=== PATIENT | female | born 1940 | race Two or more races ===

== ENCOUNTER 2022-08-04 16:45 | Inpatient (IN) | payer OTHER ==
[~2022-08-04] VITALS: Ht 165.1 cm; Wt 86.2 kg
--- NOTE | 2022-08-04 16:57 | NUR ---
BIB RA 89 FROM HOME,CAREGIVER CALLED BECAUSE SHE WAS NOTED TO BE CONFUSED AND FEBRILE TODAY,SAW HER THIS WEEKEND AND SHE WAS ACTING NORMAL. PLACED ON BED, AWAKE ALERT- CONFUSED UNABLE TO ANSWER QUESTION.
[2022-08-04] MEDS ORDERED: IV NS 0.9% 1,000 ML BAG IV ONE (17:00)
[2022-08-04] MEDS ORDERED: ACETAMINOPHEN ES 500 MG TABLET PO ONE (17:00)
[2022-08-04] MEDS ORDERED: ACETAMINOPHEN ES 500 MG TABLET ONE (17:02)
--- NOTE | 2022-08-04 17:10 | NUR ---
SHREDDER TENDER PEAT AT BEDSIDE
[2022-08-04 17:53] LABS: BASOPHILS % (AUTO) 0.2 % (0.0-2.0); EOSINOPHILS % (AUTO) 0.3 % (0.0-6.0); HEMATOCRIT 36 % (33-45); HEMOGLOBIN 11.6 g/dL (11.5-14.8); LYMPHOCYTES # (AUTO) 0.8 K/uL (0.8-4.8); MEAN CORPUSCULAR HGB CONC 33 g/dl (31.0-36.0); MEAN CORPUSCULAR VOLUME 83 fL (82-100); MONOCYTES # (AUTO) 0.3 K/uL (0.1-1.30); MONOCYTES % (AUTO) 3.8 % (2.0-12.0); NEUTROPHILS # (AUTO) 5.5 K/uL (1.8-8.9); NEUTROPHILS % (AUTO) 83.7 % (43.0-81.0); PLATELET COUNT (AUTO) 149 K/uL (150-450); RED BLOOD CELL COUNT(AUTO) 4.27 MIL/uL (4.0-5.2); WHITE BLOOD COUNT (AUTO) 6.6 K/uL (4.3-11.0)
--- NOTE | 2022-08-04 17:57 | NUR ---
Note rika in EDM - 08/04/22 at 2049 by JILLIAN KEYON DAVEY 89 FROM HOME, CAREGIVER CALLED BECAUSE SHE WAS NOTED TO BE CONFUSED AND FEBRILE TODAY, SAW HER THIS WEEKEND AND SHE WAS ACTING NORMAL. PLACED ON BED, AWAKE- ALERT CONFUSED AND UNABLE TO ANSWER QUESTION.
[2022-08-04 18:07] LABS: CALCIUM, SERUM 9.6 mg/dL (8.5-10.1); CARBON DIOXIDE 24 mmol/L (21-32); CHLORIDE 103 mmol/L (98-107); CREATININE 1.2 mg/dL (0.6-1.3); GLUCOSE 117 mg/dL (74-106); POTASSIUM 4.2 mmol/L (3.5-5.1); SODIUM SERUM 135 mmol/L (136-145); UREA NITROGEN, BLOOD 15 mg/dL (7-18)
--- NOTE | 2022-08-04 18:10 | NUR ---
URINE SAMPLE SENT TO LAB
[2022-08-04 18:20] LABS: ALANINE AMINOTRANSFERASE 13 U/L (12-78); ALBUMIN 3.5 g/dL (3.4-5.0); ALKALINE PHOSPHATASE 94 U/L (46-116); ASPARTATE AMINOTRANSFERASE 13 U/L (15-37); BILIRUBIN,DIRECT 0.2 mg/dL (0.0-0.2); BILIRUBIN,TOTAL 0.7 mg/dL (0.2-1.0); TOTAL PROTEIN, SERUM 7.1 g/dL (6.4-8.2)
[2022-08-04 19:04] LABS: BILIRUBIN,URINE NEGATIVE (NEGATIVE); COLOR,URINE YELLOW (YELLOW); LEUKOCYTE ESTERASE ,URINE SMALL (NEGATIVE); NITRITE, URINE NEGATIVE (NEGATIVE); PROTEIN,URINE NEGATIVE (NEGATIVE); UGLUCOSE NEGATIVE (NEGATIVE); UROBILINOGEN,URINE 0.2 EU/dL (0.2)
[2022-08-04 19:09] LABS: BACTERIA,URINE 1+ /HPF (None Seen)
[2022-08-04] MEDS ORDERED: CEFTRIAXONE 1GM BAG (ER ONLY) 50 ML IV ONE ×2 (19:30→20:07)
--- NOTE | 2022-08-04 19:43 | NUR ---
COVID SWAB COLLECTED AND SENT TO LAB
--- NOTE | 2022-08-04 20:38 | NUR ---
MICKY MARTÍNEZ [phone]
--- NOTE | 2022-08-04 21:32 | NUR ---
GOT BED 325-2
[2022-08-04] MEDS ORDERED: MORPHINE SULFATE INJ 2 MG/ML DISP.SYRIN IV PRN (22:00)
[2022-08-04] MEDS ORDERED: MAGNESIUM HYDROXIDE 30 ML UDC PO PRN (22:00)
[2022-08-04] MEDS ORDERED: CEFTRIAXONE 1 G in IV D5W 50 ML IV SCH (22:00)
[2022-08-04] MEDS ORDERED: Z GUARD REMEDY 4 OZ OINT TP PRN (22:00)
[2022-08-04] MEDS ORDERED: TEMAZEPAM 15 MG CAPSULE PO PRN (22:00)
[2022-08-04] MEDS ORDERED: MAG HYDROX/AL HYDROX/SIMETH 30 ML UDC PO PRN (22:00)
[2022-08-04] MEDS ORDERED: ONDANSETRON HCL/PF 4 MG/2 ML VIAL IVP PRN (22:00)
--- NOTE | 2022-08-04 22:00 | NUR ---
REPORT GIVEN TO YUNIER SMALLS
[2022-08-04 22:15] VITALS: BP 142/76
--- NOTE | 2022-08-04 22:15 | NUR ---
MS RN OPENING NOTE PT TRANSPORTED VIA GURNEY TO UNIT AT THIS TIME. PT ADMITTED TO MS UNIT FROM ER UNDER CHANNEL DIRECTOR [facility] FOR ADMITTING DX UTI, POA AND ACUTE ON CHRONIC ENCEPHALOPATHY. ALERT AND CONFUSED. PT STABLE ON ROOM AIR. NO SOB OR S/S OF RESPIRATORY DISTRESS. BREATHING EVEN AND UNLABORED. IV ACCESS RIGHT HAND 18G, INTACT AND PATENT. NOTED WITH EDEMA AND REDNESS OF BILATERAL LOWER LEGS. PT ORIENTED TO UNIT, STAFF, AND ROOM. PT BELONGINGS ACCOUNTED FOR AND BELONGINGS LIST SIGNED. SAFETY PRECAUTIONS IN PLACE. BED IN LOWEST LOCKED POSITION, HOB ELEVATED, SIDE RAILS UP X3, AND CALL LIGHT AND TABLE WITHIN REACH. ALL NEEDS MET AT THIS TIME. Addendum: 08/05/22 at 0654 by SLIM HINDS RN ADMISSION NOTE*
[2022-08-04] MEDS: ENOXAPARIN SODIUM 30 MG/0.3 ML DISP.SYRIN SQ SCH (22:57)
[2022-08-04] MEDS: IV NS 0.9% 1,000 ML IV PRN (23:28)
--- NOTE | 2022-08-05 06:54 | NUR ---
MS RN CLOSING NOTE PT AWAKE IN BED. ALERT AND CONFUSED. PT STABLE ON ROOM AIR. NO SOB OR S/S OF RESPIRATORY DISTRESS. BREATHING EVEN AND UNLABORED. IV ACCESS RIGHT HAND 18G, INTACT AND PATENT, RUNNING NS @ 75 ML/HR. ALL DUE MEDS GIVEN ORDERED. TURNED AND REPOSITIONED Q2H. KEPT CLEAN AND DRY. SAFETY PRECAUTIONS IN PLACE AT ALL TIMES. BED IN LOWEST LOCKED POSITION, HOB ELEVATED, SIDE RAILS UP X3, AND CALL LIGHT AND TABLE WITHIN REACH. ALL NEEDS MET AT THIS TIME AND WILL ENDORSE TO ONCOMING NURSE FOR MARIANNE.
--- NOTE | 2022-08-05 07:30 | NUR ---
RN Opening Note Patient AOx2, patient able to express needs with some language barriers. Patient with no signs of distress other than when moved. Cleaned patient with another nurse, BM and urine. All safety precautions taken, call light and table within reach, bed high fowlers and at lowest position.
[2022-08-05 07:54] LABS: BASOPHILS % (AUTO) 0.2 % (0.0-2.0); EOSINOPHILS % (AUTO) 0.4 % (0.0-6.0); HEMATOCRIT 37 % (33-45); HEMOGLOBIN 11.9 g/dL (11.5-14.8); LYMPHOCYTES # (AUTO) 1.4 K/uL (0.8-4.8); LYMPHOCYTES % (AUTO) 15.8 % (20.0-44.0); MEAN CORPUSCULAR HGB CONC 33 g/dl (31.0-36.0); MEAN CORPUSCULAR VOLUME 84 fL (82-100); MONOCYTES # (AUTO) 0.7 K/uL (0.1-1.30); MONOCYTES % (AUTO) 8.3 % (2.0-12.0); NEUTROPHILS # (AUTO) 6.5 K/uL (1.8-8.9); NEUTROPHILS % (AUTO) 75.3 % (43.0-81.0); PLATELET COUNT (AUTO) 143 K/uL (150-450); RED BLOOD CELL COUNT(AUTO) 4.37 MIL/uL (4.0-5.2); WHITE BLOOD COUNT (AUTO) 8.7 K/uL (4.3-11.0)
--- NOTE | 2022-08-05 07:57 | NUR ---
WOUND CARE CONSULT: PT PRESENTS WITH REDNESS TO BREASTFOLDS, ABDOMINAL/GROIN FOLDS, SCARRING TO SACRAL AREA AND TO LOWER EXTREMITIES WELL REDNESS/SWELLING TO LOWER LEGS, PRESENT ON ADMISSION. PT IS INCONTINENT. RECOMMENDATIONS MADE FOR SKIN PROTECTION. DISCUSSED WITH NURSING STAFF. DPM CONSULT CALLED TO DR HAMPAPUR. SANDOVAL IN AGREEMENT WITH PLAN OF CARE.
[2022-08-05] MEDS: ACETAMINOPHEN 325 MG TABLET PO PRN (08:02)
[2022-08-05] MEDS: PANTOPRAZOLE 40 MG TABLET.DR PO SCH (08:02)
[2022-08-05 08:04] LABS: CALCIUM, SERUM 9.7 mg/dL (8.5-10.1); CARBON DIOXIDE 22 mmol/L (21-32); CHLORIDE 102 mmol/L (98-107); GLUCOSE 95 mg/dL (74-106); PHOSPHORUS 3.1 mg/dL (2.5-4.9); POTASSIUM 3.9 mmol/L (3.5-5.1); SODIUM SERUM 137 mmol/L (136-145); UREA NITROGEN, BLOOD 14 mg/dL (7-18)
[2022-08-05] MEDS: CLOTRIMAZOLE 1% 15 GM TUBE TP SCH ×2 (10:49→17:40)
--- NOTE | 2022-08-05 18:31 | NUR ---
RN Closing Note Pt. AOx1, not able to express her concerns. Caregiver was at bedside throughout day, providing assistance. Patient with no signs of discomfort or distress. Provided care as needed and medications as prescribed All safety precautions taken throughout shift. IV site with no signs of infiltration, no pain at site reported. Patient remained safe, call light and table within reach, bed at lowest position. Will endorse report to night nurse for continuity of care.
--- NOTE | 2022-08-05 19:00 | NUR ---
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
[2022-08-05 20:00] VITALS: BP 142/76
[2022-08-05] MEDS ORDERED: CEFTRIAXONE 1 G in IV D5W 50 ML IV SCH (20:00)
[2022-08-05 20:34] VITALS: BP 123/74
[2022-08-05] MEDS: ENOXAPARIN SODIUM 30 MG/0.3 ML DISP.SYRIN SQ SCH (22:01)
[2022-08-06] VITALS: BP 143/63
[2022-08-06 00:41] VITALS: BP 143/63
[2022-08-06] MEDS: IV NS 0.9% 1,000 ML IV PRN (04:31)
--- NOTE | 2022-08-06 04:48 | NUR ---
CLOSING NOTES: ALERT THRU THE NIGHT WITH AT TIMES CONFUSION SHE WILL SMILE AND JOKE GOOD ABOUT BEING REPOSITIONED AND TURNED LEGS AND HAND REMAIN SWOLLEN DEEN ELEVATED ON PILLOWS AND THERE IS DECREASE IN THE SWELLING SHE IS INCONTINENT KEPT CLEAN AND DRY BED ALARM STATIONARY ENGINEER REFRIGERATION LIGHT WITH HER REACH RAILS UP FOR HER SAFETY FREQ BED CHECKS AFEBRILE
--- NOTE | 2022-08-06 07:48 | NUR ---
MS RN OPENING NOTE Patient in bed, awake. A/O x 2, with periods of confusion. On O2 at 3 LPM via NC, no SOB or s/s of distress noted. IV access on Right hand #18 infusing Ns at 75 ml/hr. Swelling on BLE noted. Safety precautions in place: be din low, locked position; siderails up x 2; call light within reach. Will continue to monitor.
[2022-08-06 08:00] VITALS: BP 127/68
[2022-08-06] MEDS: PANTOPRAZOLE 40 MG TABLET.DR PO SCH (08:03)
--- NOTE | 2022-08-06 08:05 | NUR ---
PATIENT COMPLAINED OF HEADACHE, RATED PAIN 7/10. GIVEN TYLENOL 650 MG PRN. WILL REASSESS PT.
[2022-08-06] MEDS: ACETAMINOPHEN 325 MG TABLET PO PRN (08:16)
[2022-08-06] MEDS: CLOTRIMAZOLE 1% 15 GM TUBE TP SCH ×2 (09:08→16:53)
[2022-08-06 09:30] LABS: BASOPHILS % (AUTO) 0.6 % (0.0-2.0); EOSINOPHILS % (AUTO) 4.6 % (0.0-6.0); HEMATOCRIT 34 % (33-45); HEMOGLOBIN 11.2 g/dL (11.5-14.8); LYMPHOCYTES # (AUTO) 0.9 K/uL (0.8-4.8); LYMPHOCYTES % (AUTO) 17.7 % (20.0-44.0); MEAN CORPUSCULAR HGB CONC 33 g/dl (31.0-36.0); MEAN CORPUSCULAR VOLUME 83 fL (82-100); MONOCYTES # (AUTO) 0.3 K/uL (0.1-1.30); MONOCYTES % (AUTO) 6.8 % (2.0-12.0); NEUTROPHILS # (AUTO) 3.6 K/uL (1.8-8.9); NEUTROPHILS % (AUTO) 70.3 % (43.0-81.0); PLATELET COUNT (AUTO) 109 K/uL (150-450); RED BLOOD CELL COUNT(AUTO) 4.07 MIL/uL (4.0-5.2); WHITE BLOOD COUNT (AUTO) 5.1 K/uL (4.3-11.0)
[2022-08-06 09:38] LABS: CALCIUM, SERUM 9.1 mg/dL (8.5-10.1); CARBON DIOXIDE 23 mmol/L (21-32); CHLORIDE 108 mmol/L (98-107); GLUCOSE 124 mg/dL (74-106); POTASSIUM 3.5 mmol/L (3.5-5.1); SODIUM SERUM 141 mmol/L (136-145); UREA NITROGEN, BLOOD 14 mg/dL (7-18)
--- NOTE | 2022-08-06 10:30 | NUR ---
Assistant Professor Of German Consult SW received a consult request for living home alone. Pt. is a 82 y.o. white female who was admitted for UTI. JULIUS met with pt. at bedside. Pt. appears unkept and is alert and oriented x3 and was cooperative throughout assessment. Pt. made consistent eye contact, had a cheerful mood, and had a full affect. Per pt. report they are not ambulatory and requires assistance with a walker. Pt. reported she is not receiving financial assistance. Pt. reported no hx of substance abuse. Pt. reported no hx of psychiatric dx and no visual or auditory hallucinations. SW assessed for suicidal and homicidal ideation in which pt. stated she was not currently having SI or HI. Pt. reported feeling frustrated because she cannot focus. Pt. [place] [id number] [id number]. SW inquired re family members and or person of contacts. Pt. was provided her sons information, Monico. Pt. stated that her caregiver Jacinto, attends to her Mon-Fri for 8 hours and she assists pt. with groceries, cooking meals, showers, dressing up, and laundry. Per pt. report, she is alone on the weekends and reports that she is independent with ADLs. DC plan: When asked about pt.s plans after being discharged, pt. reported she is returning home. JULIUS offered pt. fpc placement in which pt. was not agreeable. JULIUS provided pt. with senior resources guide and mental health resources in which pt. accepted them. JULIUS discussed discharge plan with nurse who stated that she will be transferred to [place], and she was agreeable. ABUSE PREVENTION: ELDER ABUSE HOTLINE (27/04) ADULT PROTECTIVE SERVICES HOTLINE LONG-TERM CARE [facility] Region AREA ON AGING (HOTLINE) ADULT DAY HEALTH CARE CARE CENTERS: Private pay or Medi-gerardo funded adult day care [place] Adult [facility] Care [facility] , [facility] , [facility] , [facility] , [facility] Adult [facility] Care , [facility] Adult [facility] Center , [place] [facility] , [place] [facility] , [place] ALZHEIMERS DISEASE/DEMENTIA: Alzheimers Association Helpline [facility] www.alz.org/[facility] Department of Aging www.lacity.org Family Caregiver [place] www.caregiver.org [place] Caregiver Resources Center/Family Support www.losangelesscrc.org CANCER RESOURCES: [place] Cancer Society www.cancer.org Cancer Support Community www.CancerSupportVvsb.org: CancerCare www.cancercare.org [facility] Cancer Support Center www.[facility].org [facility] HEALTH ASSOCIATIONS: AARP www.aarp.org ALS Association (ask for Gladys) www.als.org [place] Diabetes Association www.diabetes.org [place] Heart Association www.heart.org [place] Lung Association www.lungusa.org [place] Parkinson Disease Association www.apdaparkinson.org Bhutanese Hillandale , www.redcross.org Arthritis Foundation www.arthritis.org Crohns & Colitis Foundation of Bhutanese www.ccfa.org/chapters/amina National Multiple Sclerosis Society www.nationalmssociety.org Myasthenia Gravis Foundation www.myasthenia-ca.org National Stroke Association www.stroke.org CONSERVATORSHIP & GUARDIANSHIP: AARP Daisha Emerson Legal Services Center for Health Care Rights Eld[place]are Information and Referral Data Collection Technician Foundation [facility]: [facility] Bar Referral Service [facility] Heart Legal Services Office of the Public Guardian [place] EYESIGHT DISORDER RESOURCES: [place] Macular Degeneration Foundation [facility] www.[facility].org GRIEF AND BEREAVEMENT RESOURCES: [facility] , [facility] THE [facility] , [facility] Bereavement Center , [place] HEARING DISORDER RESOURCES: [place] Telephone Access Program Deaf and Disabled Telecommunications Program www.ddtp.cpu.ca.gov HearRx Hearing Centers ([place]) Better Hearing Systems , [place] GLAD ([facility] Agency on Deafness) V/ TTY; Business Development Analyst , [facility] Hearing [facility] -low income hearing aid assistance www.[place] One Real Estatehearingfoundation.org [place] [facility] , [place] HELP AT HOME CAREGIVER SUPPORT: In Home Support Services (Must have Medi-Gerardo to be eligible) *Ask for a list of agencies that provide services to assist with care in the home. Local Senior Centers also have listings of care providers. HOME SAFETY MODIFICATIONS AND EQUIPMENT: Senior centers have additional referrals. [place] Housing and Community Investment Dept. Handyworker Program (low income) or Visit http://hcidla.lacity.org/ipz-wheoin-ps for more information National Seating and Mobility and/or ; Forever Active www.foreveractivemed.com Stay Home Safe www.StayhomSimply [place] [address] LIFE ALERT RESPONSE SYSTEM: INetU Managed Hostingline Services 636-717-9832 www. ExpertBids.com Life Alert 125-503-6511 www.CTS Media Life Station 766-300-5462 www.Aquavit Pharmaceuticalsation.[place] Safe Return 125-473-7987 www.alz.or/safereturn Cell Phones for Seniors www.Cascaad (CircleMe) MEALS AND FOOD PROGRAMS: [place] Meals on Wheels [phone] [place] Meals on Wheels [phone] [facility] 622-258-9979 [place] to the Homebound [phone] [place] to the Homebound [phone] [facility] to the Homebound [phone] [facility] to the Homebound [phone] [facility] [phone] [facility] [phone] ONE Generation [phone] [facility] [phone] [facility] [phone] Meals on Wheels [phone] For all ages: $6.85/ meal w side. Delivered M-F from 10 am-1pm. Application and payment is done over the phone. Frozen meals available for weekends. Emergency Food Coalsan [facility] [phone] [facility] Assistant Professor Of German [phone] [facility] [phone] [facility]- Brown bag lunches [phone] [facility] [phone] MEAL/GROCERY DELIVERY PROGRAMS: [facility] Gocape [facility] Meals [phone]- [facility] [phone]- [facility] Magic Kitchen [phone] Moms Meals [phone] (ask Elizabeth for Discount Select grocery stores may provide delivery. MEDICAL INSURANCE SUPPORT SERVICES: Center for Health Care Rights [phone] Health Insurance Counseling/Advocacy Programs (HICAP)-Must have Medicare. Offers counseling for Medi-Gerrado eligibility [phone] [facility] of Public Assistant Professor Of German [phone] www.[facility].ca.gov Medicare 833-795-0465 www.socialsecurity.org Social Security 622-281-4279 SENIOR ACTIVITY PROGRAMS: *Contact a local senior center, adult school, recreation facility or community college for education, fitness, recreation, and social programs. Aquatic Therapy and Adapted Exercise programs through [facility] [phone] Encore at [facility] 661-480-6529 www.[facility]/encore U- Senior Friends [phone] [place] Senior Programs [phone] www.oasisnet.org Suddenly 65 www.moaafiuo53.com SENIOR CENTERS: [facility] Center [phone] [facility] [phone] [facility] [phone] [facility] [phone] [facility] [phone] [facility] [phone] [facility] [phone] One Generation, [facility] [phone] [facility] [phone] [facility] [phone] [facility] [phone] [facility] [phone] TRANSPORTATION: Local [facility] Centers may have applications for transportation programs and additional resources. ACCESS Services [phone] Transportation for seniors and disabled persons 7 days a week requiring 254 hr. advance reservation. Must apply and register for program tom eligible. CITY RIDE 596-039-3150 or [phone] Transportation for seniors and persons with ADA card/metro disabled card in the [facility]. M-F only. Must register for services. ONE GENERATION [phone] Serves 65 years + in conjunction with [employer] ride program. Must be registered with both programs. A to B Transport [phone] Provides wheelchair/gurney van service. Adult Medical Transport [phone] Accepts [facility] with prior authorization. Care Van [phone] Provides wheelchair Transport. City Wide Transportation [phone] Provides gurney service Gentle Care [phone] Gurney Transport. [facility] Town Transportation [phone] wheelchair & gurney transport [facility] Transportation [phone] wheelchair & gurney transport Secor Non-Emergency Transport [phone] wheelchair & gurney transport [facility] Living [place] [phone] Short Term Transportation primarily for adults with disabilities on social security income. Nominal fee may apply and a reservation is required. City Cab [phone] or [phone] SmartLink Radio Networks [facility] [phone] [place] [address] Referral Services -[phone] For additional programs & services VETERANS RESOURCES: Submissions for Aid and Attendance should be done directly to Federal VA office locatd at : [facility] [phone] [place] [phone] National Caregiver Support Line [phone] [facility] Veterans Services Field Office [phone] [place] Department of [place] Affairs [phone] Pension Information [phone]
[2022-08-06 16:00] VITALS: BP 114/60
[2022-08-06] MEDS ORDERED: AMMONIUM LACTATE 227 GM BOTTLE TP SCH (17:00)
--- NOTE | 2022-08-06 18:55 | NUR ---
RN NOTES RECEIVED CALL FROM GERMÁN FROM [facility], PATIENT WILL BE TRANSFERRED TO [facility] ROOM 4227 MED SURG LEVEL UNDER THE CARE OF Missy JONES NUISANCE ANIMAL DAMAGE CONTROL AGENT TIME IS 1999. NUMBER TO CALL FOR REPORT [phone].
--- NOTE | 2022-08-06 19:03 | NUR ---
RN NOTE CALLED [facility] FOR REPORT, PER STAFF THEY COULDNT GET REPORT AT THE MOMENT DUE TO CHANGE SHIFT, TO CALL BACK BETWEEN 7:45-8PM.
--- NOTE | 2022-08-06 19:32 | NUR ---
MS RN CLOSING NOTE Patient in bed, resting. A/O x 3-4, with periods of confusion, able to make needs known. Stable on room air, breathing evenly and unlabored. No SOB or s/s of distress noted. IV access on Right hand #18 infusing NS at 75 ml/hr. All needs attended to. Due meds given. Safety precautions in place: bed in low, locked position; siderails up x 2; call light within reach. Will endorse to manufacturing supervisor 2nd shift nurse for MARIANNE.
--- NOTE | 2022-08-06 20:17 | NUR ---
Monico the son called @ [phone] and message left on his phone that his mom was being transfered to [facility] at 8PM tonight and my return number for any questions I gave him the room number for [facility] Called YOLA FAYE and gave report to the [facility] nurse ambulance drivers here 8pm 2 men to p/u and take her to [facility] slippers on glasses on her face and items of clothing in a plastic bag MS. Edwards is alert and orientated at this time and aware she is going to [facility]. 02 3liters n/c on sats 98% skin warm and dry smiling and joking speech clear saline lock flushed right hand
== END 2022-08-07 | disposition short-term general hospital (02) | DRG 689 ==
LOC: ER 17:01 → TELE 21:39 → MED 22:24
PROVIDERS: ADMIT Nurse Practitioner Acute Care; ATTEND Nurse Practitioner Acute Care
DX: N39.0 Urinary tract infection, site not specified (principal); G92.8 Other toxic encephalopathy; E87.1 Hypo-osmolality and hyponatremia; J98.11 Atelectasis; M20.41 Other hammer toe(s) (acquired), right foot; G30.9 Alzheimer's disease, unspecified; F02.80 Dementia in other diseases classified elsewhere, unspecified severity, without behavioral disturbance, psychotic disturbance, mood disturbance, and anxiety; I87.8 Other specified disorders of veins; L85.3 Xerosis cutis; M20.42 Other hammer toe(s) (acquired), left foot; E86.1 Hypovolemia; B96.20 Unspecified Escherichia coli [E. coli] as the cause of diseases classified elsewhere
CPT/HCPCS: 36415; 71045-TC; 80048-TC; 80076-TC; 81001; 83605-TC; 83735-TC; 84100-TC; 84443-TC; 84484-TC; 85025-TC; 85730-TC; 87040-TC; 87081-TC; 87086-TC; 87186-TC; 92526; 92611-TC; 94799-TC; 97110-TC; 97530-TC; C9803; G0378; J0696; J1650; J7030; J7060